=== PATIENT | male | born 1945 | race Caucasian/White ===

== ENCOUNTER 2018-10-31 07:06 | Day surgery (SDC) | payer MEDICARE, BC ==
[~2018-10-31] VITALS: Ht 165.1 cm; Wt 110.3 kg
[2018-10-31] VITALS (17 sets, daily range): BP systolic 123–177; BP diastolic 75–96
[2018-10-31] MEDS ORDERED: METO-411 PO (07:25)
[2018-10-31] MEDS ORDERED: AMIO200T40 PO (07:25)
[2018-10-31] MEDS ORDERED: APIX5TAB3 PO (07:26)
[2018-10-31] MEDS ORDERED: PRAV80TA3 PO (07:27)
[2018-10-31] MEDS ORDERED: LISI40TA4 PO (07:28)
[2018-10-31] MEDS ORDERED: DILT120C51 PO (07:29)
[2018-10-31] MEDS ORDERED: FURO-150 PO (07:32)
[2018-10-31] MEDS ORDERED: fentaNYL/PF 50MCG/1 ML 2ML syringe IV ONE (07:35)
[2018-10-31] MEDS ORDERED: normal saline 1000ml 1,000 ML IV SCH (07:35)
[2018-10-31] MEDS ORDERED: MIDAZolam 5mg/ml 2ml vial IV ONE (07:35)
[2018-10-31] MEDS ORDERED: POTA8CAP9 PO (07:35)
[2018-10-31 08:40] LABS: BASOPHILS % (AUTO) 0.3 % (0-1); EOSINOPHILS # (AUTO) 0.1 X10'3 (0-0.9); EOSINOPHILS % (AUTO) 1.6 % (0-6); HEMATOCRIT 45.1 % (42.0-52.0); LYMPHOCYTES # (AUTO) 1.1 X10'3 (1.1-4.8); LYMPHOCYTES % (AUTO) 21.5 % (21-51); MEAN CORPUSCULAR HGB CONC 33.3 % (33.0-36.5); MEAN CORPUSCULAR VOLUME 93.2 FL (78-98); MEAN PLATELET VOLUME 9.1 FL (7.4-10.4); MONOCYTES # (AUTO) 0.6 X10'3 (0-0.9); NEUTROPHILS # (AUTO) 3.4 X10'3 (1.8-7.7); NEUTROPHILS % (AUTO) 65.6 % (42-75); PLATELET COUNT 169 X10'3 (140-440); RED BLOOD COUNT 4.84 X10'6 (4.70-6.10); RED CELL DISTRIBUTION WIDTH 15.6 % (11.5-14.5); WHITE BLOOD COUNT 5.2 X10'3 (4.5-11.0)
[2018-10-31 08:46] LABS: ALBUMIN 3.6 G/DL (3.4-5.0); ANION GAP 9 (8-16); BLOOD UREA NITROGEN 27 MG/DL (7-18); BUN/CREATININE RATIO 18.2 (5.4-32.0); CALCIUM 9.2 MG/DL (8.5-10.1); CHLORIDE 101 MMOL/L (99-107); CREATININE 1.48 MG/DL (0.60-1.10); GLUCOSE 125 MG/DL (70-104); MAGNESIUM 1.9 MG/DL (1.5-2.4); POTASSIUM 4.6 MMOL/L (3.5-5.1); SODIUM 138 MMOL/L (135-145); TOTAL CARBON DIOXIDE 28.2 MMOL/L (24-32); eGFR 47 ML/MIN
[2018-10-31 08:49] LABS: PROTHROMBIN TIME 9.7 SECONDS (9.0-12.0)
== END 2018-10-31 11:37 | disposition home or self-care (01) ==
LOC: SSTAY O 07:06
PROVIDERS: ATTEND Internal Medicine Cardiovascular Disease
DX: I48.92 Unspecified atrial flutter (principal); I48.91 Unspecified atrial fibrillation; I45.81 Long QT syndrome; I11.0 Hypertensive heart disease with heart failure; I50.9 Heart failure, unspecified; E78.5 Hyperlipidemia, unspecified; E11.9 Type 2 diabetes mellitus without complications; G47.33 Obstructive sleep apnea (adult) (pediatric); I44.39 Other atrioventricular block; F17.210 Nicotine dependence, cigarettes, uncomplicated; Z85.46 Personal history of malignant neoplasm of prostate; Z79.01 Long term (current) use of anticoagulants; Z87.19 Personal history of other diseases of the digestive system; Z87.39 Personal history of other diseases of the musculoskeletal system and connective tissue; Z72.89 Other problems related to lifestyle; Z79.891 Long term (current) use of opiate analgesic; Z92.3 Personal history of irradiation; Z90.49 Acquired absence of other specified parts of digestive tract; Z98.890 Other specified postprocedural states; Z79.899 Other long term (current) drug therapy
CPT/HCPCS: 36415; 80048; 83735; 85025; 85610; 92960; 93005; J2250; J3010; J7030

== ENCOUNTER 2018-11-09 07:08 | Emergency (ER) | payer MEDICARE, BC ==
[~2018-11-09] VITALS: Ht 165.1 cm; Wt 104.5 kg
[~2018-11-09 07:08] MED LIST: AMIO200T40 PO; APIX5TAB3 PO; DILT120C51 PO; FURO-150 PO; LISI40TA4 PO; METO-411 PO; POTA8CAP9 PO; PRAV80TA3 PO
[2018-11-09 07:27] VITALS: BP 164/89
[2018-11-09] MEDS ORDERED: HYDROcodone/acetaminophen 10/325mg tab PO ONE ×2 (08:30→09:15)
[2018-11-09] MEDS ORDERED: orphenadrine citrate 60mg/2ml inj. IM ONE (08:30)
[2018-11-09] MEDS ORDERED: HYDR-4353 PO (08:34)
[2018-11-09] MEDS ORDERED: ORPH100T2 PO (08:34)
== END 2018-11-10 01:37 | disposition home or self-care (01) ==
LOC: ER 07:08
DX: M54.32 Sciatica, left side (principal); I10 Essential (primary) hypertension; I48.91 Unspecified atrial fibrillation; Z79.899 Other long term (current) drug therapy
CPT/HCPCS: 96372; 99283; J2360

== ENCOUNTER 2019-02-06 13:49 | Day surgery (SDC) | payer MEDICARE, BC ==
[2019-02-02 12:32] LABS: BASOPHILS % (AUTO) 0.4 % (0-1); EOSINOPHILS # (AUTO) 0.1 X10'3 (0-0.9); EOSINOPHILS % (AUTO) 1.7 % (0-6); HEMATOCRIT 43.4 % (42.0-52.0); HEMOGLOBIN 14.5 g/dl (14.0-17.9); LYMPHOCYTES % (AUTO) 22.4 % (21-51); MEAN CORPUSCULAR HEMOGLOBIN 31.2 PG (27.0-31.0); MEAN CORPUSCULAR HGB CONC 33.5 g/dL (33.0-36.5); MEAN CORPUSCULAR VOLUME 93.2 FL (78-98); MEAN PLATELET VOLUME 9.1 FL (7.4-10.4); MONOCYTES # (AUTO) 0.7 X10'3 (0-0.9); MONOCYTES % (AUTO) 16.3 % (2-12); NEUTROPHILS # (AUTO) 2.6 X10'3 (1.8-7.7); NEUTROPHILS % (AUTO) 59.2 % (42-75); PLATELET COUNT 155 X10'3 (140-440); RED BLOOD COUNT 4.65 X10'6 (4.70-6.10); RED CELL DISTRIBUTION WIDTH 16.2 % (11.5-14.5); WHITE BLOOD COUNT 4.3 X10'3 (4.5-11.0)
[2019-02-02 12:38] LABS: PARTIAL THROMBOPLASTIN TIME 28 SECONDS (22-32)
[2019-02-02 12:40] LABS: ALBUMIN 3.4 G/DL (3.4-5.0); ANION GAP 8 (8-16); BLOOD UREA NITROGEN 24 MG/DL (7-18); BUN/CREATININE RATIO 21.2 (5.4-32.0); CALCIUM 9.6 MG/DL (8.5-10.1); CHLORIDE 107 MMOL/L (99-107); CREATININE 1.13 MG/DL (0.60-1.10); GLUCOSE 110 MG/DL (70-104); POTASSIUM 4.7 MMOL/L (3.5-5.1); SODIUM 142 MMOL/L (135-145); TOTAL CARBON DIOXIDE 27.4 MMOL/L (24-32); eGFR 63 ML/MIN
[~2019-02-06] VITALS: Ht 165.1 cm; Wt 104.3 kg
[2019-02-06] VITALS (17 sets, daily range): BP systolic 119–170; BP diastolic 63–122
[~2019-02-06 13:49] MED LIST changes: +ORPH100T2 PO
[2019-02-06] MEDS ORDERED: fentaNYL/PF 50MCG/1 ML 2ML syringe IV ONE (14:15)
[2019-02-06] MEDS ORDERED: MIDAZolam 5mg/ml 2ml vial IV ONE (14:15)
[2019-02-06] MEDS ORDERED: normal saline 1000ml 1,000 ML IV SCH (14:15)
[2019-02-06] MEDS ORDERED: SOTA80TA73 PO (14:19)
[2019-02-06] MEDS ORDERED: LEVO100T PO (14:31)
== END 2019-02-06 18:20 | disposition home or self-care (01) ==
LOC: SSTAY O 13:49
PROVIDERS: ATTEND Internal Medicine Interventional Cardiology
DX: I48.91 Unspecified atrial fibrillation (principal)
CPT/HCPCS: 36415; 80048; 85025; 85610; 85730; 92960; J2250; J3010; J7030; 93005